=== PATIENT | female | born 1940 | race Caucasian/White ===

== ENCOUNTER 2016-10-13 07:58 | Outpatient (CLI) | payer MEDICARE, OTHER ==
[2016-10-13 08:28] LABS: Hemoglobin A1c 7.8 % (4.0-6.0)
[2016-10-13 08:39] LABS: ALT (SGPT) 22 U/L (0-55); AST (SGOT) 18 U/L (5-34); Albumin 4.2 g/dL (3.4-4.8); Alkaline Phosphatase 105 U/L (40-150); Anion Gap 15 mmol/L (10-20); BUN (Urea Nitrogen) 14 mg/dL (9.8-20.1); Bilirubin, Direct 0.1 mg/dL (0.1-0.3); Bilirubin, Total 0.3 mg/dL (0.2-1.2); Calc. Creatinine Clearance 0 mL/min (70-130); Calcium 9.3 mg/dL (7.8-10.44); Carbon Dioxide 23 mmol/L (23-31); Cardiac Risk 3.4 (Less than 4.5); Chloride 102 mmol/L (98-107); Cholesterol 133 mg/dL (< 200 Desired); Estimated GFR-MDRD 68; Glucose 136 mg/dL (83-110); HDL Cholesterol 39 mg/dL (>60 Neg Risk); LDL Cholesterol, Calculated 50 mg/dL; Potassium 4.2 mmol/L (3.5-5.1); Protein, Total 6.8 g/dL (5.8-8.1); Sodium 136 mmol/L (136-145); Triglycerides 219 mg/dL (Less than 150)
== END 2016-10-13 07:59 ==
LOC: MADLABBHPM 07:58
PROVIDERS: ATTEND Family Medicine
DX: E78.5 Hyperlipidemia, unspecified (principal)
CPT/HCPCS: 36415; 80048; 80061; 80076; 83036

== ENCOUNTER 2017-01-12 07:47 | Outpatient (CLI) | payer MEDICARE, OTHER ==
[2017-01-12 08:42] LABS: Hemoglobin A1c 8.2 % (4.0-6.0)
[2017-01-12 09:04] LABS: ALT (SGPT) 30 U/L (8-55); AST (SGOT) 23 U/L (5-34); Albumin 4.1 g/dL (3.4-4.8); Alkaline Phosphatase 93 U/L (40-150); Anion Gap 15 mmol/L (10-20); BUN (Urea Nitrogen) 18 mg/dL (9.8-20.1); Bilirubin, Direct 0.1 mg/dL (0.1-0.3); Bilirubin, Total 0.4 mg/dL (0.2-1.2); Calc. Creatinine Clearance 0 mL/min (70-130); Calcium 9.4 mg/dL (7.8-10.44); Carbon Dioxide 23 mmol/L (23-31); Cardiac Risk 3.1 (Less than 4.5); Chloride 104 mmol/L (98-107); Cholesterol 130 mg/dl (< 200 Desired); Estimated GFR-MDRD 62; Glucose 131 mg/dL (83-110); HDL Cholesterol 42 mg/dL (>60 Neg Risk); LDL Cholesterol, Calculated 41 mg/dL; Potassium 4.3 mmol/L (3.5-5.1); Protein, Total 6.8 g/dL (6.0-8.3); Sodium 138 mmol/L (136-145); Triglycerides 233 mg/dL (Less than 150)
== END 2017-01-12 07:48 ==
LOC: MADLABBHPM 07:47
PROVIDERS: ATTEND Family Medicine
DX: E11.9 Type 2 diabetes mellitus without complications (principal)
CPT/HCPCS: 36415; 80048; 80061; 80076; 83036

== ENCOUNTER 2017-04-12 07:49 | Outpatient (CLI) | payer MEDICARE, OTHER ==
[2017-04-12 09:43] LABS: Hemoglobin A1c 8.3 % (4.0-6.0)
[2017-04-12 09:45] LABS: ALT (SGPT) 29 U/L (8-55); AST (SGOT) 20 U/L (5-34); Albumin 4.2 g/dL (3.4-4.8); Alkaline Phosphatase 109 U/L (40-150); Anion Gap 15 mmol/L (10-20); BUN (Urea Nitrogen) 13 mg/dL (9.8-20.1); Bilirubin, Direct 0.2 mg/dL (0.1-0.3); Bilirubin, Total 0.4 mg/dL (0.2-1.2); Calc. Creatinine Clearance 0 mL/min (70-130); Calcium 9.9 mg/dL (7.8-10.44); Carbon Dioxide 24 mmol/L (23-31); Chloride 101 mmol/L (98-107); Estimated GFR-MDRD 60; Glucose 112 mg/dL (83-110); Potassium 4.4 mmol/L (3.5-5.1); Sodium 136 mmol/L (136-145)
[2017-04-12 11:16] LABS: Cardiac Risk 3.2 (Less than 4.5); Cholesterol 136 mg/dl (< 200 Desired); HDL Cholesterol 43 mg/dL (>60 Neg Risk); LDL Cholesterol, Calculated 54 mg/dL; Triglycerides 197 mg/dL (Less than 150)
== END 2017-04-12 07:50 | disposition home or self-care (01) ==
LOC: MADLAB 07:49
PROVIDERS: ATTEND Family Medicine
DX: E11.9 Type 2 diabetes mellitus without complications (principal)
CPT/HCPCS: 36415; 80048; 80061; 80076; 83036

== ENCOUNTER 2020-08-27 15:04 | Emergency (ER) | payer MEDICARE, BC ==
[2020-08-27 16:14] LABS: Bilirubin Negative (Negative); Blood, Urine Large (Negative); Clarity Cloudy (Clear); Glucose, Urine (Dipstick) Negative (Negative); Ketone, Urine Negative (Negative); Leukocyte Trace (Negative); Nitrite Negative (Negative); Protein, Urine (Dipstick) > or equal to 300 mg/dL (Neg-Trace); Urobilinogen 0.2 mg/dL (Less than 2); pH, Urine 6.5 (5.0-9.0)
[2020-08-27 16:19] LABS: RBC/HPF Greater than 50 HPF (0-3); WBC/HPF 0-3 HPF (0-3)
[2020-08-27 16:20] LABS: Bacteria/HPF Rare-Few HPF (None Seen); Squamous Epithelial None Seen HPF (0-3)
--- NOTE | 2020-08-27 17:16 | CT ---
CT ABDOMEN NONCONTRAST CT PELVIS NONCONTRAST: (Urolithiasis protocol) DATE: 08/27/2020 HISTORY: 80-year-old female with hematuria TECHNIQUE: IV injection of iodinated contrast media: None Oral contrast media: None FINDINGS: Other than for urolithiasis, the lack of IV and oral contrast limits the evaluation. Liver: No contour abnormalities. Spleen: No splenomegaly. Pancreas: No contour abnormalities. Adrenals: No mass. Kidneys: No nephrolithiasis or overt hydronephrosis. Ureters: No calculi. Bladder: No calculi. Pelvic relaxation. Abdominal aorta: No aneurysm. Small bowel: No dilation. Colon: Large number of sigmoid and descending colonic diverticula. No adjacent fat stranding. Appendix: No dilation or adjacent fat stranding. Free air: None Free fluid: None Gallbladder: Large number of surgical clips in gallbladder fossa and adjacent regions. Uterus: Surgically absent. IMPRESSION: 1. No acute findings. 2. Pelvic relaxation, status post hysterectomy 3. Status post cholecystectomy 4. Small sliding hiatal hernia
== END 2020-08-27 17:50 | disposition home or self-care (01) ==
LOC: MADERS 15:04
DX: N30.01 Acute cystitis with hematuria (principal); E10.9 Type 1 diabetes mellitus without complications; I10 Essential (primary) hypertension; Z79.899 Other long term (current) drug therapy; Z85.3 Personal history of malignant neoplasm of breast; Z79.82 Long term (current) use of aspirin
CPT/HCPCS: 74176; 81003; 81015; 87077; 87086; 87186

== ENCOUNTER 2023-11-06 08:38 | Emergency (ER) | payer MEDICARE, BC | END 2023-11-06 09:24 | disposition home or self-care (01) | LOC: MADERS 08:38 | DX: J00 Acute nasopharyngitis [common cold] (principal); I10 Essential (primary) hypertension; E11.9 Type 2 diabetes mellitus without complications; I48.91 Unspecified atrial fibrillation; E78.00 Pure hypercholesterolemia, unspecified; Z79.01 Long term (current) use of anticoagulants; Z79.4 Long term (current) use of insulin; Z79.82 Long term (current) use of aspirin; Z79.899 Other long term (current) drug therapy | CPT/HCPCS: 99282 ==

== ENCOUNTER 2024-01-08 13:29 | Outpatient (CLI) | payer MEDICARE, BC | END 2024-01-08 13:30 | disposition home or self-care (01) | LOC: MADLAB 13:29 | PROVIDERS: ATTEND Internal Medicine Cardiovascular Disease | DX: R06.02 Shortness of breath (principal) | CPT/HCPCS: 71046 ==

== ENCOUNTER 2024-02-22 11:05 | Emergency (ER) | payer MEDICARE, BC ==
[2024-02-22] MEDS ORDERED: Ondansetron PF 4 MG/2 ML Vial ONE (11:52)
[2024-02-22 12:14] LABS: Hematocrit 39.8 % (36.0-47.0); Hemoglobin 11.9 g/dL (12.0-16.0); Manual Diff?? YES; Mean Corpuscular Hemoglobin 24.9 pg (27.0-31.0); Mean Corpuscular Volume 83.2 fl (78.0-98.0); Mean Platelet Volume 6.7 fL (7.4-10.4); Platelet Count 331 10x3/uL (130-400); RBC Distribution Width 17.9 % (11.5-14.5); Red Blood Cell (RBC) Count 4.79 mill/uL (4.20-5.40); White Blood Cell (WBC) Count 11.9 10x3/uL (4.8-10.8)
[2024-02-22 12:15] LABS: Anisocytosis SLIGHT = 6-15 cells (100X) (0-5/hpf); Band 1 % (5-11); Eosinophils 2 % (0-10); Lymphocytes 13 % (21-51); MDiff Complete? YES; Monocytes 6 % (0-10); Neutrophil 78 % (42-75); Poikilocytosis SLIGHT = 6-15 cells (100X) (0-5/hpf); Schistocytes SLIGHT = 2-5 cells (100X) (0-1/hpf)
[2024-02-22 12:16] LABS: Anion Gap 17 mmol/L (10-20); BUN (Urea Nitrogen) 20 mg/dL (9.8-20.1); Calc. Creatinine Clearance 0 mL/min (70-130); Carbon Dioxide 20 mmol/L (23-31); Chloride 103 mmol/L (98-107); Platelet Adequacy Comment Appears Adequate; Potassium 4.9 mmol/L (3.5-5.1); Sodium 135 mmol/L (136-145)
[2024-02-22 12:17] LABS: ALT (SGPT) 26 U/L (8-55); AST (SGOT) 31 U/L (5-34); Albumin 3.8 g/dL (3.4-4.8); Alkaline Phosphatase 108 U/L (40-110); Bilirubin, Total 0.6 mg/dL (0.2-1.2); Calcium 9.3 mg/dL (7.8-10.44); Estimated GFR 38; Glucose 220 mg/dL (83-110); Magnesium 1.9 mg/dL (1.6-2.6); Protein, Total 6.8 g/dL (5.8-8.1)
[2024-02-22 12:27] LABS: Critical Call Chem Troponin I NUR..CMA .1226; Troponin I 0.211 ng/mL (< 0.028)
[2024-02-22] MEDS ORDERED: Aspirin Chewable 81 MG TAB ONE (12:35)
[2024-02-22] MEDS ORDERED: Furosemide 40 MG (4 mL) VIAL ONE (12:57)
[2024-02-22 14:11] LABS: Influenza A by NAA Not Detected (NotDetected); Influenza B by NAA Not Detected (NotDetected); SARS-CoV-2 NAA Rapid Test Not Detected (NotDetected)
[2024-02-22 14:43] LABS: Troponin I 0.016 ng/mL (< 0.028)
== END 2024-02-22 14:38 | disposition short-term general hospital (02) ==
LOC: MADERS 11:05
DX: S09.90XA Unspecified injury of head, initial encounter (principal); I21.4 Non-ST elevation (NSTEMI) myocardial infarction; I48.91 Unspecified atrial fibrillation; I44.7 Left bundle-branch block, unspecified; N17.9 Acute kidney failure, unspecified; I50.9 Heart failure, unspecified; I11.0 Hypertensive heart disease with heart failure; E11.9 Type 2 diabetes mellitus without complications; W19.XXXA Unspecified fall, initial encounter; Z79.899 Other long term (current) drug therapy; Z79.01 Long term (current) use of anticoagulants; Z79.82 Long term (current) use of aspirin
CPT/HCPCS: 70450; 71045; 72125; 80053; 83735; 83880; 84484; 85025; 93005; 96374; 96375; J1940; J2405

== ENCOUNTER 2024-02-26 18:15 | Inpatient (IN) | payer MEDICARE, BC ==
[2024-02-26 19:40] VITALS: BMI 25.4
[2024-02-26] MEDS ORDERED: Fluticasone Propionate Nasal Spray 16 gm Bottle NASAL PRN (20:28)
[2024-02-26] MEDS ORDERED: Aspirin 81 mg Enteric Coated Tablet PO SCH (21:00)
[2024-02-26] MEDS: Apixaban 5 MG TAB PO SCH (21:56)
[2024-02-26] MEDS: Flecainide 50 MG TAB PO SCH (21:57)
[2024-02-26] MEDS: Atorvastatin Calcium 40 MG TAB PO SCH (21:57)
[2024-02-26] MEDS: Icosapent Ethyl 1 GM CAPSULE PO SCH (21:58)
[2024-02-26] MEDS: Carvedilol 6.25 MG TAB PO SCH (21:59)
[2024-02-26] MEDS: Lantus 1000 UNITS/10 ML VIAL SC SCH (21:59)
[2024-02-26] MEDS ORDERED: HumaLOG 300 UNITS/3 ML VIAL SC PRN (22:00)
[2024-02-26] MEDS: Potassium Chloride 20 MEQ TAB PO SCH (22:02)
[2024-02-27] MEDS: Carvedilol 6.25 MG TAB PO SCH (08:18)
[2024-02-27] MEDS: Furosemide 40 MG TAB PO SCH (08:18)
[2024-02-27] MEDS: Alogliptin 25 MG TAB PO SCH (08:18)
[2024-02-27] MEDS: Aspirin Chewable 81 MG TAB PO SCH (08:18)
[2024-02-27] MEDS: Pantoprazole DR 40 MG TAB PO SCH (08:18)
[2024-02-27] MEDS: Multivitamin W/ Minerals 1 TAB PO SCH (08:18)
[2024-02-27] MEDS: Lisinopril 10 MG TAB PO SCH (08:19)
[2024-02-27] MEDS: Calcium Carbonate 500 MG TAB PO SCH (08:20)
[2024-02-27] MEDS: Cholecalciferol 1,000 UNITS (25 MCG) TAB PO SCH (08:21)
[2024-02-28] MEDS: Magnesium Glycinate 100 MG Tablet PO SCH (12:57)
[2024-02-28] MEDS: Meclizine HCl 25 MG TAB PO PRN (12:57)
[2024-02-28] MEDS ORDERED: Fluticasone Propionate Nasal Spray 16 gm Bottle NASAL PRN (18:49)
[2024-02-28 20:25] VITALS: BMI 25.4
[2024-02-29 06:23] LABS: Anion Gap 15 mmol/L (10-20); BUN (Urea Nitrogen) 22 mg/dL (9.8-20.1); Calc. Creatinine Clearance 44 mL/min (70-130); Calcium 8.9 mg/dL (7.8-10.44); Carbon Dioxide 26 mmol/L (23-31); Chloride 98 mmol/L (98-107); Estimated GFR 50; Glucose 66 mg/dL (83-110); Potassium 3.7 mmol/L (3.5-5.1); Sodium 135 mmol/L (136-145)
[2024-02-29] MEDS: Loratadine 10 MG TAB PO PRN (08:23)
[2024-02-29] MEDS: Magnesium Oxide 400 MG TAB PO SCH (08:23)
[2024-02-29] MEDS: Acetaminophen 500 MG TAB PO PRN (20:16)
[2024-03-01] MEDS: Meclizine HCl 25 MG TAB PO PRN (10:37)
[2024-03-01] MEDS ORDERED: Atorvastatin Calcium 10 MG TAB PO SCH (21:30)
[2024-03-01] MEDS: Potassium Chloride 20 MEQ TAB PO SCH (21:38)
[2024-03-04] MEDS: Alogliptin 6.25 MG TAB PO SCH (08:07)
[2024-03-04 08:10] VITALS: BP 130/72
[2024-03-04 09:40] VITALS: TEMP 98.3
== END 2024-03-04 17:00 | disposition home health service (06) | DRG 948 ==
LOC: OBSVTOIN 18:15 → MADMS 18:15
PROVIDERS: ADMIT Family Medicine; ATTEND Emergency Medicine
DX: R53.1 Weakness (principal); I42.9 Cardiomyopathy, unspecified; I50.22 Chronic systolic (congestive) heart failure; I13.0 Hypertensive heart and chronic kidney disease with heart failure and stage 1 through stage 4 chronic kidney disease, or unspecified chronic kidney disease; I48.4 Atypical atrial flutter; R53.81 Other malaise; I48.91 Unspecified atrial fibrillation; E11.22 Type 2 diabetes mellitus with diabetic chronic kidney disease; E78.5 Hyperlipidemia, unspecified; I25.10 Atherosclerotic heart disease of native coronary artery without angina pectoris; N18.9 Chronic kidney disease, unspecified; Z95.0 Presence of cardiac pacemaker; Z79.899 Other long term (current) drug therapy; Z88.8 Allergy status to other drugs, medicaments and biological substances; Z88.5 Allergy status to narcotic agent; Z79.82 Long term (current) use of aspirin; Z90.49 Acquired absence of other specified parts of digestive tract; Z90.710 Acquired absence of both cervix and uterus; Z95.1 Presence of aortocoronary bypass graft; Z82.49 Family history of ischemic heart disease and other diseases of the circulatory system
CPT/HCPCS: 36416; 80048; J1815

== ENCOUNTER 2024-05-15 16:33 | Emergency (ER) | payer MEDICARE, BC ==
[2024-05-15] MEDS ORDERED: Furosemide 20 MG (2 mL) VIAL ONE (17:38)
[2024-05-15 17:43] LABS: #Basophils 0.1 thou/uL (0.0-0.2); #Eosinphils 0.1 thou/uL (0.0-0.7); #Lymphocytes 1.6 thou/uL (1.20-3.40); #Monocytes 0.8 thou/uL (0.11-0.59); #Neutrophils 5.3 thou/uL (1.40-6.50); %Basophils 1.3 % (0.0-1.0); %Eosinophils 1.4 % (0.0-10.0); %Lymphocytes 20.9 % (21.0-51.0); %Monocytes 9.5 % (0.0-10.0); %Neutrophils 66.9 % (42.0-75.0); Hemoglobin 12.2 g/dL (12.0-16.0); Hypochromia MODERATE=16-30 cells (100X) (0-5/hpf); MDiff Complete? YES; Mean Corpuscular HGB CONC 29.9 g/dL (32.0-36.0); Mean Corpuscular Hemoglobin 25.3 pg (27.0-31.0); Mean Corpuscular Volume 84.7 fl (78.0-98.0); Mean Platelet Volume 6.7 fL (7.4-10.4); Platelet Adequacy Comment Appears Adequate; Platelet Count 374 10x3/uL (130-400); RBC Distribution Width 15.7 % (11.5-14.5); Red Blood Cell (RBC) Count 4.84 mill/uL (4.20-5.40); White Blood Cell (WBC) Count 7.9 10x3/uL (4.8-10.8)
[2024-05-15 17:46] LABS: ALT (SGPT) 36 U/L (8-55); AST (SGOT) 37 U/L (5-34); Albumin 3.2 g/dL (3.4-4.8); Alkaline Phosphatase 120 U/L (40-110); Anion Gap 17 mmol/L (10-20); BUN (Urea Nitrogen) 30 mg/dL (9.8-20.1); Bilirubin, Total 0.8 mg/dL (0.2-1.2); Calc. Creatinine Clearance 0 mL/min (70-130); Calcium 8.9 mg/dL (7.8-10.44); Carbon Dioxide 23 mmol/L (23-31); Chloride 101 mmol/L (98-107); Estimated GFR 27; Glucose 103 mg/dL (83-110); Potassium 4.8 mmol/L (3.5-5.1); Protein, Total 6.2 g/dL (5.8-8.1); Sodium 136 mmol/L (136-145)
[2024-05-15 17:47] LABS: Troponin I 0.016 ng/mL (< 0.028)
== END 2024-05-15 21:24 | disposition short-term general hospital (02) ==
LOC: MADERS 16:33
DX: I13.0 Hypertensive heart and chronic kidney disease with heart failure and stage 1 through stage 4 chronic kidney disease, or unspecified chronic kidney disease (principal); I50.9 Heart failure, unspecified; N18.9 Chronic kidney disease, unspecified; E11.22 Type 2 diabetes mellitus with diabetic chronic kidney disease; R79.1 Abnormal coagulation profile; E78.00 Pure hypercholesterolemia, unspecified; I48.91 Unspecified atrial fibrillation; Z79.899 Other long term (current) drug therapy; Z79.01 Long term (current) use of anticoagulants; Z79.4 Long term (current) use of insulin; Z79.82 Long term (current) use of aspirin
CPT/HCPCS: 71045; 80053; 83880; 84484; 85025; 85379; 93005; 96374; J1940